=== PATIENT | male | born 1950 | race Hispanic/Latino ===

== ENCOUNTER 2018-02-15 09:30 | Day surgery (SDC) | payer MEDICARE ==
[2018-02-08 13:40] VITALS: BMI 39.7
--- NOTE | 2018-02-15 03:29 | HP ---
Copied To: Samaria Guzman MD Attending MD: Samaria Guzman MD REASON FOR ADMISSION: Left and right heart cath, possible angioplasty, abnormal stress test. BRIEF CLINICAL HISTORY: This is a 67-year-old male with past medical history significant for history of coronary artery disease, CABG, cardiomyopathy, SVG to ramus intermedius and BAIRD to LAD, and venous graft to obtuse marginal 2, history of MV repairing, history of radiofrequency ablation for atrial fibrillation and history of ASD repair, history of cath prior to CABG, ejection fraction of 35 to 40%, who had a normal stress test dated 02/04/2018, ischemia, ejection fraction of 48%. Patient admitted for left heart and right heart catheterization. Echo showed mitral stenosis, so patient is scheduled for left as well as right heart cath. Past history is significant for history of coronary artery disease status post CABG, BAIRD to LAD, SVG to intermedius and SVG to obtuse marginal 1, history of mitral valve repair, history of ablation for atrial fibrillation, history of ASD secundum repair. PAST MEDICAL HISTORY: Significant for diabetes, hypertension, hyperlipidemia, CAD as above. SOCIAL HISTORY: Denies smoking. Denies any history of alcohol abuse. CURRENT MEDICATIONS: Patient is taking insulin, Lasix, aspirin, Flomax, metoprolol, MAG-OX, glimepiride, potassium, metformin. Patient had a stress test that shows probably abnormal myocardial perfusion study, partially reversible anteroseptal apical defect suggestive of ischemia. When compared with the last study on 09/15/2017, the apical defect is smaller, improved contractility. Patient had echo done recently that shows mild mitral stenosis, history of MV repair, ejection fraction by stress test 48%. REVIEW OF SYSTEMS: As per HPI. PHYSICAL EXAMINATION: VITAL SIGNS: As follows, height of the patient is 5 feet 11 inches, weight of the patient 285 pounds, body mass index 39.7 kg/sq m. Rest of the examination: Temperature afebrile, heart rate 80, blood pressure 129/80. HEENT: PERRLA, intact. NECK: Supple. No carotid bruit or thyromegaly. CHEST: Clear to auscultation. HEART: S1, S2 regular. ABDOMEN: Soft. EXTREMITIES: Clubbing, cyanosis negative. LABORATORY DATA: Blood workup pending. IMPRESSION: A 67-year-old male with a past medical history significant for coronary artery disease status post coronary artery bypass graft. Pre coronary artery bypass graft, patient had cardiac catheterization 06/15/2015, found to be a single vessel coronary involving the ostial left anterior descending, possibly with heavily calcified artery, unable to cross with a wire. Patient's ejection fraction is 35% to 40%. End-diastolic pressure was in the range of 30. Patient sent for open heart surgery. The patient underwent open heart surgery with three-vessels bypass and mitral valve repair as well as surgical ablation of atrial fibrillation. Had a recently abnormal stress test. Patient is scheduled for elective cardiac cath, possible angioplasty. Also echo showed mitral stenosis, so we will do the right heart catheterization to assess the severity of the mitral valve as well. As mentioned, patient had a three-vessels bypass and surgical ablation of atrial fibrillation and mitral valve repair at that time with left anterior mammary artery to left anterior descending, saphenous vein graft to circumflex, obtuse marginal 2 and saphenous vein graft to ramus intermedius. Patient had echocardiography done here dated 04/30/2016, right ventricle is moderately dilated. Left ventricular function within the normal limit. Mitral valve repair. Aortic root is moderately dilated dated 04/30/[address] Vallejo. RECOMMENDATIONS: We will get low-dose of Plavix, aspirin. We will review the blood workup if available and we will do cardiac catheterization, left and right heart and possible angioplasty. Further recommendation after the cardiac catheterization. Thank you Dr. Noble, for providing us the opportunity in taking care of the patient, Severiano García. Samaria Guzman MD
[2018-02-15 10:04] LABS: BASO # 0.03 K/mm3 (0.0-2.0); BASO % 0.4 % (0.0-3.0); EOS # 0.1 (0.0-0.7); EOS % 1.7 % (1.5-5.0); GRAN # 5.83 (1.4-6.5); GRAN % 74.8 % (50.0-68.0); HEMOGLOBIN 13.9 g/dL (14.0-18.0); LYMPH # 1.1 (1.2-3.4); LYMPH % 14.2 % (22.0-35.0); MEAN CELL VOLUME 89.8 fl (80.0-105.0); MEAN CORPUSCULAR HEMOGLOBIN 30.3 pg (25.0-35.0); MEAN CORPUSCULAR HGB CONC 33.7 g/dl (31.0-37.0); MEAN PLATELET VOLUME 9.3 fl (7.0-11.0); MONO # 0.7 (0.1-0.6); MONO % 8.9 % (1.0-6.0); RBC 4.59 10^6/uL (3.5-6.1); RED CELL DISTRIBUTION WIDTH 13.7 % (11.5-14.5); WHITE BLOOD COUNT 7.8 10^3/ul (4.5-11.0)
[2018-02-15 10:12] LABS: BLOOD UREA NITROGEN 16 mg/dL (7-21); CALCIUM 8.9 mg/dL (8.4-10.5); GFR NON-AFRICAN AMERICAN > 60; HDL CHOLESTEROL 48 mg/dL (29-60); INR 1.06; PARTIAL THROMBOPLASTIN TIME 31.9 Seconds (25.1-36.5); PROTHROMBIN TIME 12.2 SECONDS (9.4-12.5)
[2018-02-15 10:23] LABS: LDL CHOLESTEROL 96 mg/dL (0-129)
[2018-02-15] MEDS ORDERED: Iodixanol 320 MG/ML 100 ML BOTTLE IV ONE (10:51)
[2018-02-15] MEDS ORDERED: Iohexol 350mgl/ml 50 ML ONE (10:51)
[2018-02-15] MEDS ORDERED: Iodixanol 320 MG/ML 200 ML BOTTLE IV ONE (10:51)
[2018-02-15] MEDS ORDERED: Heparin 2,000 ML IV ONE (10:51)
[2018-02-15] MEDS ORDERED: Midazolam 2 MG/2 ML VIAL ONE (10:57)
[2018-02-15] MEDS ORDERED: Sodium Chloride 0.9% 1,000 ML IV SCH (12:30)
[2018-02-15] MEDS ORDERED: Bacitracin 500 Units/gm Oint Foilpak UD ONE (13:12)
[2018-02-15 13:33] VITALS: TEMP 97
[2018-02-15 14:59] VITALS: RESP 18; O2SAT 97
[2018-02-15 15:02] VITALS: BP 136/61; PULSE 59
--- NOTE | 2018-02-15 15:54 | CARD ---
APPROVED REPORT Date of service: 02/15/2018 EKG Measurement Heart [id number] <Conclusion> Sinus rhythm with 1st degree AV block with occasional premature ventricular complexes Left axis deviation Low voltage QRS Septal infarct, age undetermined Abnormal ECG
[2018-02-15] MEDS ORDERED: Insulin Reg-LOW-Coverage SC SCH (16:30)
--- NOTE | 2018-02-15 17:41 | CPOSTOP ---
DATE: 02/15/2018 CARDIOVASCULAR LAB POST PROCEDURE NOTE DICTATING PHYSICIAN: Samaria Guzman MD HOSPITALIST NOCTURNIST PHYSICIAN: MICHA Olivia. TYPE OF ANESTHESIA: Moderate conscious sedation. Total 2 mg of Versed and 100 of fentanyl given. Started 1 mg of Versed, 50 of fentanyl. PRE-PROCEDURE DIAGNOSES: Chest pain, abnormal stress test, history of coronary artery disease, bypass surgery as well as atrial septal defect repair, mitral valve repair and surgical ablation of atrial fibrillation. PROCEDURE PERFORMED: Complete heart catheterization. FINDINGS: LAD proximally occluded. Patent BAIRD to LAD. Pulmonary hypertension. FINAL DIAGNOSES: 1. Single-vessel disease, but patent left internal mammary artery to left anterior descending. 2. Pulmonary hypertension. POST PROCEDURE CONDITION: Post procedure, the patient's condition is stable. VASCULAR ACCESS SITE: Right femoral groin. CLOSURE DEVICE: Mynx, arterial as well as venous access. TOTAL RADIATION DOSE: 21,503.4 milligray unit. TOTAL FLUORO TIME: 12.8 minutes. Samaria Guzman MD
--- NOTE | 2018-02-15 17:53 | CARD ---
APPROVED REPORT Date of service: 02/15/2018 Procedure(s) performed: Complete Heart Catheterization HISTORY The patient is a 67 year-old male with a history of : most recent EF: 48%. (EF Method: RADIONUCLIDE), previous CHF, diabetes mellitus with insulin treatment , previous diagnostic cath, hypertension , previous CABG (The CABG date was 09/28/2015), previous valve surgery (The previous valve surgery date was ), Hx of Two Vessel CABG BAIRD to LAD and SVG to OM2, ASD repair and MV repair with ring and Surgical ablation for Afin in 2016., who was C/o Chest tightness and Had an abnormal stress test showing apical and mookie-lateral ischemia. INDICATION The indication(s) include : positive stress test. CASE TECHNIQUE The patient was brought electively to the Cardiac Catheterization Laboratory in a fasting state and was prepped and draped in a sterile manner. The right femoral groin was infiltrated with 2% Lidocaine subcutaneous anesthesia. A sheath was inserted into the right femoral artery without difficulty. Coronary angiography was performed using coronary diagnostic catheters. The left coronary system was accessed and visualized with a Diagnostic ,6 Fr JL 4.5 catheter. The right coronary system was accessed and visualized with a 6F JR 4 CATH DXT 100 CM catheter. The left ventricle was accessed and visualized with a 6 Fr Dual Lumen Pigtail catheter. Left ventricular/Aortic Valve gradient assessed on pullback. Left ventriculogram was performed in ARNETT projection. A Right Heart Catheterization was performed with a 7 Fr. [place] catheter and pressure were recorded. A 7 sheath was inserted into the right femoral vein without difficulty. Coronary angiography was performed using coronary diagnostic catheters. Pre-demployment femoral angiogram was performed . Closure device was deployed with a 6 Fr / 7 Fr MynxGrip without any complications. The patient tolerated the procedure well and there were no complications associated with the procedure. Mynx applied in both arterial and Venous Access Vessel Analysis The patient's coronary anatomy is right dominant. The left main coronary artery is a medium size vessel with diffuse calcification noted throughout this vessel and without significant stenosis. The left main bifurcates to the left anterior descending and circumflex. The left anterior descending artery is a medium size vessel with diffuse calcification noted throughout this vessel and with significant stenosis. There is a 99% stenosis in the proximal segment. The first diagonal branch is a large size vessel with intimal irregularities and without significant stenosis. The circumflex artery is a medium size vessel with diffuse calcification noted throughout this vessel and without significant stenosis. The first obtuse marginal branch is a medium size vessel with diffuse calcification noted throughout this vessel and without significant stenosis. The second obtuse marginal branch is a medium size vessel with diffuse calcification noted throughout this vessel and without significant stenosis. The right coronary artery is a Very large size vessel super dominant wrap aroud apex and roma's crook take off, but no flow obstucting stenosis.. The right posterior descending artery is a large size vessel with diffuse calcification noted throughout this vessel and without significant stenosis. The right posterolateral branch is a large size vessel with diffuse calcification noted throughout this vessel and without significant stenosis. The left internal mammary artery to the mid left anterior descending artery segment is patent . The saphenous vein graft to the second obtuse marginal branch segment Colud not be canulated, presumably occluded and no competative flow seen . Left Ventricle The left ventricle is in size with mildly decreased contractility. Ischemic cardiomyopathy. The left ventricular ejection fraction is estimated to be 45%. The left ventricular end diastolic pressure is 25 mmHg. 25-28 mm gradient across Aortic valve noted. Right Heart Cath Findings The Right Atrial Pressure is 12-14 mmHg. The Right Ventricular Pressure is 80/12 mmHg. The Pulmonary Artery Pressure is 80/30 mmHg. with a mean of 45 The Pulmonary Catheter Wedge Pressure is 24 mmHg. PVR 4 Wood units. The cardiac output and index were assessed using thermo dilution. The Cardiac Output is 5.35 L/min. The Cardiac index is 2.19 L/min/m2. Conclusion Single Vessel CAD involving LAD. Patent BAIRD to LAD Presumably SVG to OM2 occluded But OM2 does not have flow limiting stenosis. Ischemic CMP,EF-45%, EDP25 mmof Hg. 25-28 mm gradient across Aortic valve on pull back [id number],RV- 80/12, PA-80/30 with a mean 0f 45 , PCW-24, CO-5.35, CI-2.9, PVR-4 robles unit Moderate , AVA1.1-1.2 cm2 Moderate MS, MVA 1.4 cm2 ( S/p MV repair with Ring) Recommendations Aggressive Medical TherapyCardiac Risk Reduction Program Weight Loss Reduction Program Aggressive wt Reduction then re assess RVSP Cc; drs. Pelon tellez/ [place]
[2018-02-15 17:58] LABS: BASO # 0.02 K/mm3 (0.0-2.0); BASO % 0.3 % (0.0-3.0); EOS # 0.1 (0.0-0.7); EOS % 1.2 % (1.5-5.0); GRAN # 5.73 (1.4-6.5); GRAN % 73.8 % (50.0-68.0); HEMOGLOBIN 13.7 g/dL (14.0-18.0); LYMPH # 1.4 (1.2-3.4); LYMPH % 17.7 % (22.0-35.0); MEAN CELL VOLUME 91.8 fl (80.0-105.0); MEAN CORPUSCULAR HEMOGLOBIN 29.5 pg (25.0-35.0); MEAN CORPUSCULAR HGB CONC 32.2 g/dl (31.0-37.0); MEAN PLATELET VOLUME 9.5 fl (7.0-11.0); MONO # 0.5 (0.1-0.6); RBC 4.64 10^6/uL (3.5-6.1); RED CELL DISTRIBUTION WIDTH 13.8 % (11.5-14.5); WHITE BLOOD COUNT 7.8 10^3/ul (4.5-11.0)
[2018-02-15] MEDS ORDERED: Potassium Chloride 20 mEq ER Tab PO SCH (18:00)
[2018-02-15 18:05] LABS: BLOOD UREA NITROGEN 17 mg/dL (7-21); GFR NON-AFRICAN AMERICAN > 60
[2018-02-15] MEDS ORDERED: Insulin Regular 100 units/ml ONE (18:18)
[2018-02-16] MEDS ORDERED: [UNRECOGNIZED DRUG - OTHER] SQ SCH (10:00)
[2018-02-16] MEDS ORDERED: INSULIN GLARGINE HUM REC ANLOG 12 UNIT SQ SCH (10:00)
== END 2018-02-15 18:50 | disposition home or self-care (01) ==
LOC: CATH 09:30
PROVIDERS: ATTEND Internal Medicine Cardiovascular Disease
DX: I25.10 Atherosclerotic heart disease of native coronary artery without angina pectoris (principal); I25.5 Ischemic cardiomyopathy; I27.20 Pulmonary hypertension, unspecified; I11.0 Hypertensive heart disease with heart failure; I50.9 Heart failure, unspecified; I48.91 Unspecified atrial fibrillation; E11.9 Type 2 diabetes mellitus without complications; I44.0 Atrioventricular block, first degree; Z79.4 Long term (current) use of insulin; Z95.1 Presence of aortocoronary bypass graft
CPT/HCPCS: 36415; 80048; 80061; 85025; 85610; 85730; 86850; 86900; 93005; 93460; 99152; 99153; C1760; C1769 ×2; C1894; C2629; J1644; J2250; J3010; J7030; Q9966